=== PATIENT | male | born 1985 | race Caucasian/White ===

== ENCOUNTER 2016-10-24 18:16 | Emergency (ER) | payer OTHER | END 2016-10-24 19:20 | disposition home or self-care (01) | LOC: ER1 18:16 | DX: L02.11 Cutaneous abscess of neck (principal); F41.9 Anxiety disorder, unspecified; F17.210 Nicotine dependence, cigarettes, uncomplicated; Z90.49 Acquired absence of other specified parts of digestive tract; Z79.899 Other long term (current) drug therapy | CPT/HCPCS: 87070; 87077; 87186; 87205; 99282 ==

== ENCOUNTER 2016-11-22 07:26 | Emergency (ER) | payer OTHER | END 2016-11-22 09:15 | disposition home or self-care (01) | LOC: ER1 07:26 | DX: R51 Headache (principal); F17.200 Nicotine dependence, unspecified, uncomplicated | CPT/HCPCS: 99284 ==

== ENCOUNTER 2020-08-15 11:44 | Emergency (ER) | payer OTHER ==
[~2020-08-15 11:44] MED LIST: IBUPROFEN400 MG PO
[2020-08-15 12:59] LABS: HEMOGLOBIN 12.8 gm/dl (14.0-17.5); RED BLOOD COUNT 4.32 M/UL (4.20-5.50)
[2020-08-15 13:29] LABS: BUN/CREATININE RATIO 11 (0-10)
== END 2020-08-15 15:00 | disposition home or self-care (01) ==
LOC: ER1 11:44
PROVIDERS: Emergency Medicine
DX: R07.2 Precordial pain (principal); Z53.20 Procedure and treatment not carried out because of patient's decision for unspecified reasons
CPT/HCPCS: 71045; 80053; 82550; 82553; 83690; 83874; 84484; 85025; 93005; 99285

== ENCOUNTER 2021-10-16 01:09 | Emergency (ER) | payer OTHER ==
[2021-10-16 02:34] LABS: RED BLOOD COUNT 4.82 M/UL (4.20-5.50); WHITE BLOOD COUNT 5.9 K/UL (4.5-11.0)
[2021-10-16 03:07] LABS: BUN/CREATININE RATIO 9 (0-10)
[2021-10-16] MEDS ORDERED: CEPHALEXIN500 M1 PO (04:24)
[2021-10-16] MEDS ORDERED: PROTONIX 40 MG40 M1 PO (04:24)
[2021-10-16] MEDS ORDERED: BACTRIM DS TAB1 EACH PO (04:24)
[2021-10-16] MEDS ORDERED: ONDANSETRON ODT4 MG SL (04:24)
== END 2021-10-16 04:35 | disposition home or self-care (01) ==
LOC: ER1 01:09
PROVIDERS: Student in an Organized Health Care Education/Training Program
DX: L02.214 Cutaneous abscess of groin (principal); R11.2 Nausea with vomiting, unspecified; R19.7 Diarrhea, unspecified; R10.13 Epigastric pain; R10.12 Left upper quadrant pain; F17.200 Nicotine dependence, unspecified, uncomplicated; Z79.899 Other long term (current) drug therapy
CPT/HCPCS: 10060; 80053; 83690; 85025; 96374; 96375; 99284; C9113; J2405